=== PATIENT | female | born 1980 | race Caucasian/White ===

== ENCOUNTER 2018-04-16 18:10 | Emergency (ER) | payer OTHER ==
[2018-04-16 18:17] VITALS: BP 110/78; PULSE 96; TEMP 98.8; BMI 30.4
--- NOTE | 2018-04-16 18:57 | PDOC ---
History of Present Illness - General Chief Complaint: Headache Stated Complaint: HEADACHE Time Seen by Provider: 04/16/18 18:34 History Source: Patient Exam Limitations: No Limitations - History of Present Illness Initial Comments: 04/16/18 19:00 HISTORY OF PRESENT ILLNESS: 37-year-old woman presents emergency department for reevaluation of headaches she's had for the past 2-3 weeks. Patient states she was evaluated at [facility] where she was given a prescription for Toradol and Imitrex which she has taken with minimal relief of symptoms. She reports she had a negative CAT scan performed yesterday. She denies any fevers, chills, blurry vision, neck pain, sore throats, vomiting. No recent travel or sick contacts. PAST MEDICAL HISTORY: Denies past medical history SURGICAL HISTORY: Denies ALLERGIES: Naproxen REVIEW OF SYSTEMS General/Constitutional: Denies fever or chills. Denies weakness, weight change. HEENT: Denies change in vision. Denies ear pain or discharge. Denies sore throat. Cardiovascular: Denies chest pain or shortness of breath. Respiratory: Denies cough, wheezing, or hemoptysis. Gastrointestinal: Denies nausea, vomiting, diarrhea or constipation. Denies rectal bleeding. Genitourinary: Denies dysuria, frequency, or change in urination. Musculoskeletal: Denies joint or muscle swelling or pain. Denies neck or back pain. Skin and breasts: Denies rash or easy bruising. Neurologic: see HPI Psychiatric: Denies depression or anxiety. Endocrine: Denies increased thirst. Denies abnormal weight change. Hematologic/Lymphatic: Denies anemia, easy bleeding, or history of blood clots. Allergic/Immunologic: Denies hives or skin allergy. Denies latex allergy. PHYSICAL EXAM General Appearance: Well-appearing, appropriately dressed. No apparent distress , no intoxication. HEENT: EOMI, PERRLA, normal ENT inspection, normal voice, TMs normal, pharynx normal. No conjunctival pallor. No photophobia, scleral icterus. Neck: Supple. Trachea midline. No tenderness, rigidity, carotid bruit, stridor , lymphadenopathy, or thyromegaly. Respiratory/Chest: Lungs CTAB. No shortness of breath, chest tenderness, respiratory distress, accessory muscle use. No crackles, rales, rhonchi, stridor , wheezing, dullness Cardiovascular: RRR. S1, S2. No JVD, murmur, bradycardia, tachycardia. Vascular Pulses: Dorsalis-Pedis (R): 2+, Dorsalis-Pedis (L): 2+ Gastrointestinal/Abdominal: Normal bowel sounds. Abdomen soft, non-distended. No tenderness or rebound tenderness. No organomegaly, pulsatile mass, guarding, hernia, hepatomegaly, splenomegaly. Lymphatic: No adenopathy, tenderness. Musculoskeletal/Extremities: Normal inspection. FROM of all extremities, normal capillary refill. Pelvis Stable. No CVA tenderness. No tenderness to extremities, pedal edema, swelling, erythema or deformity. Integumentary: Appropriate color, dry, warm. No cyanosis, erythema, jaundice or rash Neurologic: cd mixer II-XII intact. Fully oriented, alert. Appropriate mood/affect. Motor strength 5/5. No appreciable EOM palsy, facial droop or sensory deficit. Normal finger-nose testing. Able to perform rapid alternating movements without difficulty. 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 strength 5/5 bilaterally Past History - Past Medical History Allergies/Adverse Reactions: Allergies Allergy/AdvReac Type Severity Reaction Status Date / Time naproxen [From Aleve] AdvReac Verified 04/16/18 18:17 Home Medications: Ambulatory Orders Duloxetine HCl [Cymbalta -] 30 mg PO DAILY 04/16/18 COPD: No Other medical history: migraines - Suicide/Smoking/Psychosocial Hx Smoking History: Current every day smoker Number of Cigarettes Smoked Daily: 10 Information on smoking cessation initiated: No *Physical Exam - Vital Signs Last Vital Signs Temp Pulse Resp BP Pulse Ox 98.8 F 96 H 18 110/78 100 04/16/18 18:13 04/16/18 18:13 04/16/18 18:13 04/16/18 18:13 04/16/18 18:13 Moderate Sedation - Procedure Monitoring Vital Signs: Procedure Monitoring Vital Signs Temperature 98.8 F 04/16/18 18:13 Pulse Rate 96 H 04/16/18 18:13 Respiratory Rate 18 04/16/18 18:13 Blood Pressure 110/78 04/16/18 18:13 O2 Sat by Pulse Oximetry (%) 100 04/16/18 18:13 Medical Decision Making - Medical Decision Making 04/16/18 19:02 A/P: 37-year-old woman with headache for 3 weeks Normal neurologic exam Differential diagnosis includes migraines, headaches- hormaonal, tension type, cluster less likely ICH given negative CAT scan performed yesterday [facility]. Reglan 10 mg IV Benadryl 25 mg IV Tylenol 1 g IV 1 L of normal saline Reassess 04/16/18 20:12 Patient currently reports her pain is 0/10. Headache diary was discussed with the patient. Patient is alert he been given a prescription for Imitrex and patient was instructed that of her headaches return should take the Imitrex immediately when the pain starts. Patient is verbalized understanding of discharge instructions reports she will follow up with her primary doctor as previously scheduled on Wednesday. *DC/Admit/Observation/Transfer Diagnosis at time of Disposition: Migraine Qualifiers: Migraine type: menstrual Status migrainosus presence: without status migrainosus Intractability: not intractable Qualified Code(s): G43.829 - Menstrual migraine, not intractable, without status migrainosus - Discharge Dispostion Disposition: HOME Condition at time of disposition: Stable Decision to Admit order: No - Referrals - Patient Instructions Additional Instructions: Take Tylenol or Motrin as needed for headaches. Keep a diary of all food to eat and activities performed prior to headaches starting. Make an appointment with her primary doctor for reevaluation within the next week. Return to emergency department for worsening headache, blurry vision, dizziness , nausea, vomiting or any other concerns. Thank you very much for for choosing us to provide emergent health care needs. - Post Discharge Activity
[2018-04-16] MEDS ORDERED: ACETAMINOPHEN 1000 MG/100 ML VIAL (NON FORMULARY) IVPB ONE (18:58)
[2018-04-16] MEDS ORDERED: METOCLOPRAMIDE HCL INJECTION 10 MG/2 ML VIAL IVPUSH ONE (18:58)
[2018-04-16] MEDS ORDERED: SODIUM CHLORIDE 1,000 ML IV STA (18:59)
[2018-04-16] MEDS ORDERED: ACETAMINOPHEN INJECTION 100 ML IVPB ONE (19:19)
[2018-04-16] MEDS ORDERED: METOCLOPRAMIDE HCL INJECTION 10 MG/2 ML VIAL ONE (19:39)
== END 2018-04-16 20:13 | disposition home or self-care (01) ==
LOC: JERFT 18:10
PROC: 3E0337Z Introduction of Electrolytic and Water Balance Substance into Peripheral Vein, Percutaneous Approach (ICD-10-PCS; principal; 2018-04-16)
PROC: 3E033GC Introduction of Other Therapeutic Substance into Peripheral Vein, Percutaneous Approach (ICD-10-PCS; 2018-04-16)
PROC: 3E033GC Introduction of Other Therapeutic Substance into Peripheral Vein, Percutaneous Approach (ICD-10-PCS; 2018-04-16)
PROC: 3E033NZ Introduction of Analgesics, Hypnotics, Sedatives into Peripheral Vein, Percutaneous Approach (ICD-10-PCS; 2018-04-16)
DX: G43.829 Menstrual migraine, not intractable, without status migrainosus (principal)
CPT/HCPCS: 96361; 96374; 96375; 99281-25; J0131; J7030

== ENCOUNTER 2022-11-20 11:11 | Observation (INO) | payer OTHER ==
[2022-11-20 11:25] VITALS: BMI 28.3
[2022-11-20 13:05] LABS: BASO % 1.1 % (0-2.0); EOS % 2.9 % (0-4.5); HEMATOCRIT 26.6 % (32.4-45.2); LYMPH % 46.9 % (8-40); MCHC 30.3 g/dl (32.0-36.0); MEAN CELL VOLUME 60.8 fl (80-96); MEAN PLT VOLUME 8.6 fl (7.5-11.1); MONO % 7.3 % (3.8-10.2); NEUT % 41.8 % (42.8-82.8); PLATELET COUNT 456 10^3/uL (134-434); RBC 4.37 M/mm3 (3.60-5.2); RDW 20.5 % (11.6-15.6); WHITE BLOOD COUNT 6.4 K/mm3 (4.0-10.0)
[2022-11-20 13:10] LABS: MCH 18.4 pg (25.7-33.7)
[2022-11-20 13:12] LABS: INR 1.04 (0.83-1.09); PROTHROMBIN TIME (PATIENT) 12.1 SEC (9.7-13.0)
[2022-11-20 13:15] LABS: ACTIVATED PTT 28.5 SECONDS (25.2-36.5)
[2022-11-20 13:26] LABS: CALCIUM 8.8 mg/dL (8.5-10.1)
[2022-11-20 13:27] LABS: ALBUMIN 3.6 g/dl (3.4-5.0); BLOOD UREA NITROGEN 5.9 mg/dL (7-18)
[2022-11-20 13:30] LABS: CREATININE 0.8 mg/dL (0.55-1.3)
[2022-11-20 13:31] LABS: BILIRUBIN,TOTAL 0.3 mg/dL (0.2-1)
[2022-11-20 14:10] LABS: ANISOCYTOSIS 2+; MACROCYTOSIS 0; OVALOCYTE 1+
[2022-11-20] MEDS ORDERED: ENOXAPARIN NA (PORCINE) 80 MG/0.8 ML DISP.SYRIN SQ ONE (18:13)
[2022-11-20] MEDS: ACETAMINOPHEN 1000 MG/100 ML BAG IVPB PRN (20:40)
[2022-11-20] MEDS: clonazePAM 0.5 MG TABLET PO PRN (21:42)
[2022-11-20] MEDS: DULoxetine HCL 30 MG CAPSULE.DR PO SCH (21:42)
[2022-11-20] MEDS ORDERED: ILOPERIDONE 6 MG PO SCH (22:00)
[2022-11-21 07:49] LABS: BASO % 0.9 % (0-2.0); EOS % 3.8 % (0-4.5); HEMATOCRIT 25.3 % (32.4-45.2); HEMOGLOBIN 7.6 GM/dL (10.7-15.3); LYMPH % 52.5 % (8-40); MEAN CELL VOLUME 60.7 fl (80-96); MEAN PLT VOLUME 8.4 fl (7.5-11.1); MONO % 5.9 % (3.8-10.2); NEUT % 36.9 % (42.8-82.8); PLATELET COUNT 405 10^3/uL (134-434); RBC 4.17 M/mm3 (3.60-5.2); RDW 19.9 % (11.6-15.6); WHITE BLOOD COUNT 5.8 K/mm3 (4.0-10.0)
[2022-11-21 07:56] LABS: MCH 18.2 pg (25.7-33.7)
[2022-11-21 08:10] LABS: POTASSIUM 4.6 mmol/L (3.5-5.1)
[2022-11-21 08:13] LABS: CALCIUM 8.6 mg/dL (8.5-10.1)
[2022-11-21 08:14] LABS: ALBUMIN 3.3 g/dl (3.4-5.0); BLOOD UREA NITROGEN 6.4 mg/dL (7-18); MAGNESIUM 2.3 mg/dL (1.8-2.4)
[2022-11-21 08:17] LABS: CREATININE 0.7 mg/dL (0.55-1.3); PHOSPHOROUS 4.2 mg/dL (2.5-4.9)
[2022-11-21 08:18] LABS: TOT PROT 6.6 g/dl (6.4-8.2)
[2022-11-21 08:19] LABS: BILIRUBIN,TOTAL 0.1 mg/dL (0.2-1)
[2022-11-21] MEDS: DULoxetine HCL 30 MG CAPSULE.DR PO SCH ×2 (09:20→22:13)
[2022-11-21] MEDS: NICOTINE 14 MG/24 HOURS TOPICAL PATCH TD SCH (09:20)
[2022-11-21] MEDS: ENOXAPARIN NA (PORCINE) 80 MG/0.8 ML DISP.SYRIN SQ SCH ×2 (09:20→22:12)
[2022-11-21] MEDS: clonazePAM 0.5 MG TABLET PO PRN (09:20)
[2022-11-21] MEDS: ACETAMINOPHEN 1000 MG/100 ML BAG IVPB PRN ×2 (09:21→16:28)
[2022-11-21] MEDS ORDERED: APIXABAN 5 MG TABLET PO SCH (10:00)
[2022-11-21] MEDS ORDERED: IRON SUCROSE INJECTION 200 MG in SODIUM CHLORIDE 90 ML IVPB ONE (13:15)
[2022-11-21 15:08] VITALS: RESP 18
[2022-11-21] MEDS ORDERED: KETOROLAC TROMETHAMINE 15 MG/ML VIAL IVPUSH ONE (19:01)
[2022-11-21] MEDS: ILOPERIDONE 6 MG PO SCH ×2 (22:13→22:17)
[2022-11-22] MEDS: DULoxetine HCL 30 MG CAPSULE.DR PO SCH ×2 (09:33→22:20)
[2022-11-22] MEDS: ILOPERIDONE 6 MG PO SCH ×2 (09:34→22:21)
[2022-11-22] MEDS: NICOTINE 14 MG/24 HOURS TOPICAL PATCH TD SCH (09:35)
[2022-11-22] MEDS: ENOXAPARIN NA (PORCINE) 80 MG/0.8 ML DISP.SYRIN SQ SCH ×2 (09:35→22:24)
[2022-11-22 10:53] LABS: BASO % 1.1 % (0-2.0); EOS % 2.4 % (0-4.5); HEMATOCRIT 23.8 % (32.4-45.2); HEMOGLOBIN 7.4 GM/dL (10.7-15.3); LYMPH % 49.6 % (8-40); MCH 18.5 pg (25.7-33.7); MCHC 30.9 g/dl (32.0-36.0); MEAN CELL VOLUME 59.8 fl (80-96); MEAN PLT VOLUME 8.3 fl (7.5-11.1); MONO % 6.1 % (3.8-10.2); NEUT % 40.8 % (42.8-82.8); PLATELET COUNT 399 10^3/uL (134-434); RBC 3.98 M/mm3 (3.60-5.2); WHITE BLOOD COUNT 4.9 K/mm3 (4.0-10.0)
[2022-11-22] MEDS ORDERED: SODIUM CHLORIDE 0.9% 500 ML INFUS.BAG IV ONE (11:33)
[2022-11-22] MEDS: CYCLOBENZAPRINE HCL 5 MG TABLET PO SCH ×3 (11:45→22:20)
[2022-11-22] MEDS: ACETAMINOPHEN 1000 MG/100 ML BAG IVPB PRN ×2 (13:18→21:00)
[2022-11-22 13:52] LABS: ALBUMIN 3.2 g/dl (3.4-5.0); BILIRUBIN,TOTAL 0.2 mg/dL (0.2-1); BLOOD UREA NITROGEN 8.1 mg/dL (7-18); CALCIUM 8.6 mg/dL (8.5-10.1); CREATININE 0.7 mg/dL (0.55-1.3); POTASSIUM 4.3 mmol/L (3.5-5.1); TOT PROT 6.2 g/dl (6.4-8.2)
[2022-11-23] MEDS: CYCLOBENZAPRINE HCL 5 MG TABLET PO SCH (05:54)
[2022-11-23 06:09] VITALS: TEMP 98.4
[2022-11-23 06:16] VITALS: BP 124/81; PULSE 77
[2022-11-23] MEDS: NICOTINE 14 MG/24 HOURS TOPICAL PATCH TD SCH (10:18)
[2022-11-23] MEDS: DULoxetine HCL 30 MG CAPSULE.DR PO SCH (10:18)
[2022-11-23] MEDS: ENOXAPARIN NA (PORCINE) 80 MG/0.8 ML DISP.SYRIN SQ SCH (10:19)
[2022-11-23] MEDS: ILOPERIDONE 6 MG PO SCH (10:20)
[2022-11-23 11:33] LABS: BASO % 1.1 % (0-2.0); EOS % 3.5 % (0-4.5); HEMATOCRIT 26.6 % (32.4-45.2); HEMOGLOBIN 8.2 GM/dL (10.7-15.3); LYMPH % 43.2 % (8-40); MCHC 30.9 g/dl (32.0-36.0); MEAN CELL VOLUME 60.1 fl (80-96); MEAN PLT VOLUME 8.7 fl (7.5-11.1); MONO % 6.5 % (3.8-10.2); NEUT % 45.7 % (42.8-82.8); PLATELET COUNT 427 10^3/uL (134-434); RBC 4.42 M/mm3 (3.60-5.2); RDW 20.3 % (11.6-15.6); WHITE BLOOD COUNT 5.8 K/mm3 (4.0-10.0)
[2022-11-23 11:34] LABS: MCH 18.6 pg (25.7-33.7)
[2022-11-23 11:55] LABS: POTASSIUM 4.7 mmol/L (3.5-5.1)
[2022-11-23 11:58] LABS: ALBUMIN 3.5 g/dl (3.4-5.0); BLOOD UREA NITROGEN 8.5 mg/dL (7-18); CALCIUM 8.9 mg/dL (8.5-10.1)
[2022-11-23 12:02] LABS: CREATININE 0.7 mg/dL (0.55-1.3)
[2022-11-23 12:03] LABS: BILIRUBIN,TOTAL 0.3 mg/dL (0.2-1)
[2022-11-23] MEDS ORDERED: IRON SUCROSE INJECTION 200 MG in SODIUM CHLORIDE 90 ML IVPB ONE (13:00)
== END 2022-11-23 13:39 | disposition left against medical advice (07) ==
LOC: JER 11:11 → JERBED 17:01 → J5S 18:38
PROVIDERS: ADMIT Internal Medicine; ATTEND Internal Medicine
PROC: 3E033NZ Introduction of Analgesics, Hypnotics, Sedatives into Peripheral Vein, Percutaneous Approach (ICD-10-PCS; principal; 2022-11-20)
PROC: 3E023GC Introduction of Other Therapeutic Substance into Muscle, Percutaneous Approach (ICD-10-PCS; 2022-11-20)
PROC: 3E033GC Introduction of Other Therapeutic Substance into Peripheral Vein, Percutaneous Approach (ICD-10-PCS; 2022-11-20)
PROC: 3E0337Z Introduction of Electrolytic and Water Balance Substance into Peripheral Vein, Percutaneous Approach (ICD-10-PCS; 2022-11-20)
DX: M79.661 Pain in right lower leg (principal); D50.9 Iron deficiency anemia, unspecified; F41.8 Other specified anxiety disorders; F90.9 Attention-deficit hyperactivity disorder, unspecified type; Z29.8 Encounter for other specified prophylactic measures; E66.8 Other obesity; Z68.33 Body mass index [BMI] 33.0-33.9, adult; F17.210 Nicotine dependence, cigarettes, uncomplicated; Z88.8 Allergy status to other drugs, medicaments and biological substances
CPT/HCPCS: 0241U-QW; 36415; 71275-TC; 75635-TC; 80053; 82728; 83540; 83550; 83605; 83735; 84100; 85025; 85045; 85379; 85610; 85730; 86038; 86850; 86900; 86901; 93005; 93010; 93306-TC; 93971-RT; 96365; 96372; 96375; 96376; 99285-25; G0378; J1756; Q9967

== ENCOUNTER 2022-11-25 16:22 | Emergency (ER) | payer OTHER ==
[2022-11-25 16:49] VITALS: BP 92/59; PULSE 98; RESP 20; TEMP 98.7; BMI 28.3
[2022-11-25 18:20] LABS: HEMATOCRIT 26.8 % (32.4-45.2); HEMOGLOBIN 8.3 GM/dL (10.7-15.3); MCHC 31.1 g/dl (32.0-36.0); MEAN CELL VOLUME 60.5 fl (80-96); MEAN PLT VOLUME 8.3 fl (7.5-11.1); PLATELET COUNT 438 10^3/uL (134-434); RBC 4.43 M/mm3 (3.60-5.2); RDW 20.8 % (11.6-15.6); WHITE BLOOD COUNT 8.1 K/mm3 (4.0-10.0)
[2022-11-25 18:23] LABS: EPI CELLS 1 /uL (0-25.1); HYALINE CASTS 0 /uL (0-3.1); MCH 18.8 pg (25.7-33.7); PH,URINE 6.5 (5.0-8.0); URINE APPEARANCE CLEAR; URINE BACTERIA >9,000 /uL (0-1359); URINE BILIRUBIN NEGATIVE (NEGATIVE); URINE COLOR YELLOW; URINE GLUCOSE (UA) NEGATIVE (NEGATIVE); URINE KETONE NEGATIVE (NEGATIVE); URINE LEUK ESTERASE NEGATIVE (NEGATIVE); URINE NITRITE NEGATIVE (NEGATIVE); URINE PROTEIN NEGATIVE (NEGATIVE); URINE RBC 8 /uL (0-23.9); URINE UROBILINOGEN 0.2 mg/dL (0.2-1.0); URINE WBC 5 /uL (0-25.8)
[2022-11-25 18:34] LABS: INR 1.36 (0.83-1.09); PROTHROMBIN TIME (PATIENT) 15.7 SEC (9.7-13.0)
[2022-11-25 18:37] LABS: ACTIVATED PTT 32.7 SECONDS (25.2-36.5)
[2022-11-25 19:08] LABS: POTASSIUM 4.2 mmol/L (3.5-5.1)
[2022-11-25 19:11] LABS: CALCIUM 9.5 mg/dL (8.5-10.1)
[2022-11-25 19:12] LABS: ALBUMIN 4.1 g/dl (3.4-5.0); BLOOD UREA NITROGEN 11.5 mg/dL (7-18)
[2022-11-25 19:16] LABS: BILIRUBIN,TOTAL 0.5 mg/dL (0.2-1); CREATININE 0.9 mg/dL (0.55-1.3); TOT PROT 7.8 g/dl (6.4-8.2)
== END 2022-11-25 23:47 | disposition home or self-care (01) ==
LOC: JER 16:22
DX: R06.02 Shortness of breath (principal); R07.89 Other chest pain; R42 Dizziness and giddiness; R51.9 Headache, unspecified
CPT/HCPCS: 36415; 70450-TC; 71275-TC; 80053; 81003; 84484; 84703; 85027; 85610; 85730; 93005; 93010; 99285-25

== ENCOUNTER 2023-05-26 13:43 | Emergency (ER) | payer OTHER ==
[2023-05-26 13:48] VITALS: RESP 18; BMI 29.2
[2023-05-26 14:38] LABS: HCG,QUALITATIVE URINE Negative
[2023-05-26 14:39] LABS: EPI CELLS 16 /uL (0-25.1); HYALINE CASTS 0 /uL (0-3.1); URINE APPEARANCE CLOUDY; URINE BACTERIA 19 /uL (0-1359); URINE BILIRUBIN NEGATIVE (NEGATIVE); URINE COLOR RED; URINE GLUCOSE (UA) NEGATIVE (NEGATIVE); URINE KETONE 1+ (NEGATIVE); URINE LEUK ESTERASE 1+ (NEGATIVE); URINE NITRITE NEGATIVE (NEGATIVE); URINE PROTEIN 1+ (NEGATIVE); URINE RBC 18601 /uL (0-23.9); URINE UROBILINOGEN 0.2 mg/dL (0.2-1.0); URINE WBC 68 /uL (0-25.8)
[2023-05-26 15:41] LABS: HEMATOCRIT 30.6 % (32.4-45.2); HEMOGLOBIN 9.7 GM/dL (10.7-15.3); MCH 22.6 pg (25.7-33.7); MCHC 31.6 g/dl (32.0-36.0); MEAN CELL VOLUME 71.4 fl (80-96); MEAN PLT VOLUME 9.5 fl (7.5-11.1); PLATELET COUNT 300 10^3/uL (134-434); RBC 4.29 M/mm3 (3.60-5.2); RDW 18.3 % (11.6-15.6)
[2023-05-26 15:43] LABS: WHITE BLOOD COUNT 7.3 K/mm3 (4.0-10.0)
[2023-05-26] MEDS ORDERED: MAG HYDROX/AL HYDROX/SIMETH 30 ML UNIT-DOSE CUP ONE (15:59)
[2023-05-26] MEDS ORDERED: FAMOTIDINE 20 MG/50 ML IVPB 20 MG/50 ML MG IVPB ONE (15:59)
[2023-05-26 16:03] LABS: POTASSIUM 5.2 mmol/L (3.5-5.1)
[2023-05-26] MEDS: FAMOTIDINE 20 MG/50 ML IVPB 20 MG/50 ML MG IVPB ONE (16:03)
[2023-05-26] MEDS: MAG HYDROX/AL HYDROX/SIMETH 30 ML UNIT-DOSE CUP PO ONE (16:03)
[2023-05-26 16:06] LABS: BLOOD UREA NITROGEN 11.9 mg/dL (7-18); CALCIUM 9.4 mg/dL (8.5-10.1)
[2023-05-26 16:09] LABS: CREATININE 0.7 mg/dL (0.55-1.3)
[2023-05-26 16:10] LABS: BILIRUBIN,TOTAL 0.3 mg/dL (0.2-1); TOT PROT 7.6 g/dl (6.4-8.2)
[2023-05-26 16:44] VITALS: BP 97/65; PULSE 66; TEMP 98.5
[2023-05-26 17:01] LABS: PLATELET ESTIMATE DECREASED
[2023-05-26 18:14] LABS: ANISOCYTOSIS 3+; MACROCYTOSIS 0; OVALOCYTE 1+
== END 2023-05-26 17:25 | disposition home or self-care (01) ==
LOC: JER 13:43
PROC: 3E033GC Introduction of Other Therapeutic Substance into Peripheral Vein, Percutaneous Approach (ICD-10-PCS; principal; 2023-05-26)
DX: R10.32 Left lower quadrant pain (principal); R10.13 Epigastric pain; M54.50 Low back pain, unspecified; R68.83 Chills (without fever); N30.00 Acute cystitis without hematuria; K29.50 Unspecified chronic gastritis without bleeding
CPT/HCPCS: 36415; 76705-TC; 80053; 81003; 83690; 84703; 85025; 87086; 99284-25

== ENCOUNTER 2023-09-20 07:48 | Emergency (ER) | payer OTHER ==
[2023-09-20 07:54] VITALS: BP 109/67; PULSE 103; RESP 18; TEMP 98.6; BMI 29.2
[2023-09-20] MEDS ORDERED: ACETAMINOPHEN 325 MG TABLET (FP) ONE (08:27)
[2023-09-20] MEDS: ACETAMINOPHEN 325 MG TABLET (FP) PO ONE (08:29)
[2023-09-20] MEDS ORDERED: METOCLOPRAMIDE HCL INJECTION 10 MG/2 ML VIAL ONE (08:37)
[2023-09-20] MEDS: METOCLOPRAMIDE HCL INJECTION 10 MG/2 ML VIAL IVPUSH ONE (09:30)
[2023-09-20 09:41] LABS: BASO % 1.1 % (0-2.0); EOS % 1.1 % (0-4.5); HEMATOCRIT 34.8 % (32.4-45.2); HEMOGLOBIN 11.4 GM/dL (10.7-15.3); LYMPH % 39.8 % (8-40); MCH 23.2 pg (25.7-33.7); MCHC 32.7 g/dl (32.0-36.0); MEAN PLT VOLUME 7.9 fl (7.5-11.1); MONO % 5.7 % (3.8-10.2); NEUT % 52.3 % (42.8-82.8); PLATELET COUNT 344 10^3/uL (134-434); RBC 4.91 M/mm3 (3.60-5.2); RDW 24.5 % (11.6-15.6); WHITE BLOOD COUNT 5.4 K/mm3 (4.0-10.0)
[2023-09-20 09:58] LABS: POTASSIUM 4.2 mmol/L (3.5-5.1)
[2023-09-20 10:00] LABS: CALCIUM 9.6 mg/dL (8.5-10.1)
[2023-09-20 10:02] LABS: ALBUMIN 4.2 g/dl (3.4-5.0); BLOOD UREA NITROGEN 10.3 mg/dL (7-18)
[2023-09-20 10:04] LABS: CREATININE 0.9 mg/dL (0.55-1.3)
[2023-09-20 10:05] LABS: TOT PROT 7.9 g/dl (6.4-8.2)
[2023-09-20 10:06] LABS: BILIRUBIN,TOTAL 0.3 mg/dL (0.2-1)
[2023-09-20 10:33] LABS: ANISOCYTOSIS 2+; MACROCYTOSIS 0; OVALOCYTE 0
== END 2023-09-20 12:23 | disposition home or self-care (01) ==
LOC: JERFT 07:48
PROC: 3E033GC Introduction of Other Therapeutic Substance into Peripheral Vein, Percutaneous Approach (ICD-10-PCS; principal; 2023-09-20)
DX: R51.9 Headache, unspecified (principal)
CPT/HCPCS: 36415; 70450-TC; 70496-TC; 70498-TC; 80053; 84703; 85025; 99284-25

== ENCOUNTER 2023-09-21 19:30 | Emergency (ER) | payer OTHER ==
[2023-09-21 19:38] VITALS: RESP 20; TEMP 98.6; BMI 30.1
[2023-09-21 20:04] VITALS: BP 101/61; PULSE 77
[2023-09-21] MEDS: LACTATED RINGERS SOLUTION 1000 ML INFUS.BAG IV ONE (21:00)
[2023-09-21] MEDS ORDERED: ONDANSETRON 4 MG/2 ML VIAL ONE (21:18)
[2023-09-21] MEDS: ONDANSETRON 4 MG/2 ML VIAL IVPUSH ONE (21:29)
[2023-09-21] MEDS ORDERED: FAMOTIDINE 20 MG/50 ML IVPB 20 MG/50 ML MG IVPB ONE (21:30)
[2023-09-21] MEDS: FAMOTIDINE 20 MG/50 ML IVPB 20 MG/50 ML MG IVPB ONE (21:47)
== END 2023-09-21 22:13 | disposition home or self-care (01) ==
LOC: JER 19:30
PROC: 3E033GC Introduction of Other Therapeutic Substance into Peripheral Vein, Percutaneous Approach (ICD-10-PCS; principal; 2023-09-21)
PROC: 3E033GC Introduction of Other Therapeutic Substance into Peripheral Vein, Percutaneous Approach (ICD-10-PCS; 2023-09-21)
DX: R23.2 Flushing (principal); R51.9 Headache, unspecified; R26.81 Unsteadiness on feet
CPT/HCPCS: 36415; 84439; 84443; 99284-25

== ENCOUNTER 2023-09-22 16:45 | Emergency (ER) | payer OTHER ==
[2023-09-22 16:56] VITALS: TEMP 99; BMI 30.1
[2023-09-22] MEDS ORDERED: ACETAMINOPHEN 325 MG TABLET (FP) ONE (18:38)
[2023-09-22] MEDS: ACETAMINOPHEN 500 MG TABLET (FP) PO ONE (18:39)
[2023-09-22] MEDS ORDERED: LIDOCAINE 4% PATCH TP ONE (18:39)
[2023-09-22] MEDS: METHOCARBAMOL 500 MG TABLET PO ONE (18:39)
[2023-09-22] MEDS: LIDOCAINE 4% PATCH TP ONE (18:39)
[2023-09-22] MEDS ORDERED: METHOCARBAMOL 500 MG TABLET ONE (18:39)
[2023-09-22 18:46] VITALS: PULSE 80; RESP 20
[2023-09-22 19:02] VITALS: BP 130/78
[2023-09-22] MEDS ORDERED: LIDOCAINE PATCH REMOVAL MC SCH (22:00)
== END 2023-09-22 19:01 | disposition home or self-care (01) ==
LOC: JER 16:45
DX: R20.2 Paresthesia of skin (principal); M54.2 Cervicalgia
CPT/HCPCS: 99283-25

== ENCOUNTER 2023-10-02 16:06 | Emergency (ER) | payer OTHER ==
[2023-10-02 16:14] VITALS: BP 109/74; PULSE 98; RESP 20; TEMP 98.8; BMI 29.2
[2023-10-02] MEDS ORDERED: clonazePAM 0.5 MG TABLET ONE (17:04)
[2023-10-02] MEDS ORDERED: ACETAMINOPHEN 500 MG TABLET (FP) ONE (17:05)
[2023-10-02] MEDS: clonazePAM 0.5 MG TABLET PO ONE (17:08)
[2023-10-02] MEDS: ACETAMINOPHEN 500 MG TABLET (FP) PO ONE (17:08)
[2023-10-02] MEDS ORDERED: METHOCARBAMOL 500 MG TABLET PO ONE (17:32)
== END 2023-10-02 17:09 | disposition home or self-care (01) ==
LOC: JERFT 16:06
DX: M54.6 Pain in thoracic spine (principal); F41.9 Anxiety disorder, unspecified
CPT/HCPCS: 99283-25

== ENCOUNTER 2023-10-06 09:51 | Emergency (ER) | payer OTHER ==
[2023-10-06 10:12] VITALS: BP 107/75; PULSE 97; RESP 18; TEMP 98.2; BMI 28.3
== END 2023-10-06 12:29 | disposition home or self-care (01) ==
LOC: JER 09:51 → JERFT 09:51
DX: H60.92 Unspecified otitis externa, left ear (principal); H61.22 Impacted cerumen, left ear
CPT/HCPCS: 99283-25

== ENCOUNTER 2023-10-06 15:42 | Emergency (ER) | payer OTHER ==
[2023-10-06 16:09] VITALS: BP 129/79; PULSE 107; RESP 18; TEMP 98.6; BMI 28.3
[2023-10-06] MEDS ORDERED: LORazepam 0.5 MG TABLET ONE (17:09)
[2023-10-06] MEDS: LORazepam 0.5 MG TABLET PO ONE (17:13)
[2023-10-06 17:42] LABS: HCG,QUALITATIVE URINE Negative
[2023-10-06 17:43] LABS: EPI CELLS >36 /uL (0-25.1); HYALINE CASTS 2 /uL (0-3.1); URINE APPEARANCE CLEAR; URINE BACTERIA 206 /uL (0-1359); URINE BILIRUBIN NEGATIVE (NEGATIVE); URINE COLOR YELLOW; URINE GLUCOSE (UA) NEGATIVE (NEGATIVE); URINE KETONE TRACE (NEGATIVE); URINE LEUK ESTERASE TRACE (NEGATIVE); URINE NITRITE NEGATIVE (NEGATIVE); URINE PROTEIN NEGATIVE (NEGATIVE); URINE RBC 39 /uL (0-23.9); URINE WBC 26 /uL (0-25.8)
[2023-10-06 17:44] LABS: URINE AMPHETAMINES NEGATIVE (NEGATIVE); URINE BARBITURATES NEGATIVE (NEGATIVE)
[2023-10-06 17:45] LABS: COCAINE, UR NEGATIVE (NEGATIVE); METHADONE, UR NEGATIVE (NEGATIVE); OPIATES, URI NEGATIVE (NEGATIVE); PHENCYCLIDINE,URINE NEGATIVE (NEGATIVE)
[2023-10-06 17:48] LABS: URINE BENZODIAZEPINES POSITIVE (NEGATIVE)
[2023-10-06] MEDS ORDERED: KETOROLAC TROMETHAMINE 15 MG/ML VIAL ONE (18:42)
[2023-10-06] MEDS: KETOROLAC TROMETHAMINE 15 MG/ML VIAL IVPUSH ONE (18:56)
[2023-10-06] MEDS: SODIUM CHLORIDE 0.9% 500 ML INFUS.BAG IV ONE (18:56)
[2023-10-06 19:02] LABS: BASO % 0.6 % (0-2.0); EOS % 2.4 % (0-4.5); HEMATOCRIT 35.1 % (32.4-45.2); HEMOGLOBIN 11.2 GM/dL (10.7-15.3); MCHC 31.8 g/dl (32.0-36.0); MEAN CELL VOLUME 72.3 fl (80-96); MEAN PLT VOLUME 8.1 fl (7.5-11.1); MONO % 7.6 % (3.8-10.2); NEUT % 48.4 % (42.8-82.8); PLATELET COUNT 280 10^3/uL (134-434); RBC 4.86 M/mm3 (3.60-5.2); RDW 22.9 % (11.6-15.6); WHITE BLOOD COUNT 8.3 K/mm3 (4.0-10.0)
[2023-10-06] MEDS: ACETAMINOPHEN 1000 MG/100 ML BAG IVPB ONE (19:07)
[2023-10-06] MEDS: METOCLOPRAMIDE HCL INJECTION 10 MG/2 ML VIAL IVPUSH ONE (19:08)
[2023-10-06 19:27] LABS: POTASSIUM 4.2 mmol/L (3.5-5.1)
[2023-10-06 19:29] LABS: ALBUMIN 3.9 g/dl (3.4-5.0); BLOOD UREA NITROGEN 10.9 mg/dL (7-18); CALCIUM 9.4 mg/dL (8.5-10.1)
[2023-10-06 19:32] LABS: CREATININE 0.6 mg/dL (0.55-1.3)
[2023-10-06 19:34] LABS: BILIRUBIN,TOTAL 0.3 mg/dL (0.2-1); TOT PROT 7.1 g/dl (6.4-8.2)
[2023-10-06 20:41] LABS: ANISOCYTOSIS 3+; MACROCYTOSIS 0; OVALOCYTE 1+
== END 2023-10-06 19:56 | disposition home or self-care (01) ==
LOC: JER 15:42
PROC: 3E0333Z Introduction of Anti-inflammatory into Peripheral Vein, Percutaneous Approach (ICD-10-PCS; principal; 2023-10-06)
DX: G43.909 Migraine, unspecified, not intractable, without status migrainosus (principal); F13.90 Sedative, hypnotic, or anxiolytic use, unspecified, uncomplicated
CPT/HCPCS: 36415; 80053; 80307; 81003; 84703; 85025; 87086; 99284-25

== ENCOUNTER 2023-10-07 10:09 | Emergency (ER) | payer OTHER ==
[2023-10-07 10:16] VITALS: BP 117/65; PULSE 94; RESP 19; TEMP 98.4; BMI 28.3
[2023-10-07] MEDS ORDERED: MECLIZINE HCL 25 MG TABLET (FP) ONE (11:06)
[2023-10-07] MEDS ORDERED: ACETAMINOPHEN INJECTION 100 ML IVPB ONE (11:07)
[2023-10-07] MEDS: ACETAMINOPHEN 1000 MG/100 ML BAG IVPB ONE (11:20)
[2023-10-07] MEDS: SODIUM CHLORIDE 0.9% 500 ML INFUS.BAG IV ONE (11:20)
[2023-10-07] MEDS: MECLIZINE HCL 25 MG TABLET (FP) PO ONE (11:20)
[2023-10-07] MEDS: LORazepam 0.5 MG TABLET PO ONE (11:45)
[2023-10-07] MEDS ORDERED: LORazepam 0.5 MG TABLET ONE (11:47)
== END 2023-10-07 12:05 | disposition home or self-care (01) ==
LOC: JER 10:09
PROC: 3E033NZ Introduction of Analgesics, Hypnotics, Sedatives into Peripheral Vein, Percutaneous Approach (ICD-10-PCS; principal; 2023-10-07)
DX: R51.9 Headache, unspecified (principal); R42 Dizziness and giddiness
CPT/HCPCS: 99284-25; J0131

== ENCOUNTER 2023-10-07 16:45 | Emergency (ER) | payer OTHER ==
[2023-10-07 17:02] VITALS: BP 115/67; PULSE 102; RESP 19; TEMP 99.3; BMI 28.3
[2023-10-07] MEDS ORDERED: ALPRAZolam 1 MG TABLET ONE (17:44)
[2023-10-07] MEDS: ALPRAZolam 0.25 MG TABLET PO ONE (17:48)
[2023-10-07] MEDS ORDERED: KETOROLAC TROMETHAMINE 30 MG/1 ML VIAL ONE (17:59)
[2023-10-07] MEDS: KETOROLAC TROMETHAMINE 30 MG/1 ML VIAL IM ONE (18:15)
== END 2023-10-07 18:16 | disposition home or self-care (01) ==
LOC: JER 16:45
PROC: 3E0133Z Introduction of Anti-inflammatory into Subcutaneous Tissue, Percutaneous Approach (ICD-10-PCS; principal; 2023-10-07)
DX: F41.9 Anxiety disorder, unspecified (principal); R51.9 Headache, unspecified; R42 Dizziness and giddiness
CPT/HCPCS: 99284-25

== ENCOUNTER 2023-11-04 15:56 | Emergency (ER) | payer OTHER ==
[2023-11-04 16:23] VITALS: BMI 28.3
[2023-11-04] MEDS ORDERED: METOCLOPRAMIDE HCL INJECTION 10 MG/2 ML VIAL ONE (18:12)
[2023-11-04 18:15] LABS: BASO % 0.7 % (0-2.0); EOS % 2.3 % (0-4.5); HEMATOCRIT 36.1 % (32.4-45.2); HEMOGLOBIN 11.7 GM/dL (10.7-15.3); LYMPH % 38.2 % (8-40); MCHC 32.3 g/dl (32.0-36.0); MEAN CELL VOLUME 71.4 fl (80-96); MEAN PLT VOLUME 8.6 fl (7.5-11.1); MONO % 8.3 % (3.8-10.2); NEUT % 50.5 % (42.8-82.8); PLATELET COUNT 193 10^3/uL (134-434); RBC 5.06 M/mm3 (3.60-5.2); RDW 20.4 % (11.6-15.6); WHITE BLOOD COUNT 8.9 K/mm3 (4.0-10.0)
[2023-11-04 18:21] LABS: INR 1.13 (0.83-1.09)
[2023-11-04 18:24] LABS: ACTIVATED PTT 31.5 SECONDS (25.2-36.5); ADD RBC MORPHOLOGY YES
[2023-11-04 18:26] LABS: POTASSIUM 3.4 mmol/L (3.5-5.1)
[2023-11-04 18:27] LABS: ALBUMIN 3.8 g/dl (3.4-5.0); CALCIUM 9.3 mg/dL (8.5-10.1)
[2023-11-04 18:28] LABS: BLOOD UREA NITROGEN 11.7 mg/dL (7-18)
[2023-11-04 18:31] LABS: CREATININE 0.7 mg/dL (0.55-1.3)
[2023-11-04 18:33] LABS: BILIRUBIN,TOTAL 0.2 mg/dL (0.2-1); TOT PROT 7.1 g/dl (6.4-8.2)
[2023-11-04] MEDS: METOCLOPRAMIDE HCL INJECTION 10 MG/2 ML VIAL IVPB ONE (18:51)
[2023-11-04] MEDS: SODIUM CHLORIDE 0.9% 500 ML INFUS.BAG IV ONE (18:51)
[2023-11-04] MEDS ORDERED: diazePAM CARPU-JECT 10 MG/2 ML DISP.SYRIN ONE (19:24)
[2023-11-04] MEDS: diazePAM CARPU-JECT 10 MG/2 ML DISP.SYRIN IVPUSH ONE (19:34)
[2023-11-04 19:44] LABS: ANISOCYTOSIS 0; MACROCYTOSIS 0
[2023-11-04 20:47] VITALS: BP 133/72; PULSE 88; RESP 19; TEMP 98.6
== END 2023-11-04 20:47 | disposition left against medical advice (07) ==
LOC: JER 15:56
PROC: 3E033GC Introduction of Other Therapeutic Substance into Peripheral Vein, Percutaneous Approach (ICD-10-PCS; principal; 2023-11-04)
PROC: 3E033GC Introduction of Other Therapeutic Substance into Peripheral Vein, Percutaneous Approach (ICD-10-PCS; 2023-11-04)
DX: R42 Dizziness and giddiness (principal); I26.09 Other pulmonary embolism with acute cor pulmonale; R51.9 Headache, unspecified; Z20.822 Contact with and (suspected) exposure to COVID-19
CPT/HCPCS: 0241U-QW; 36415; 70450-TC; 71045-TC-FY; 71275-TC; 80053; 83735; 83880; 84484; 84703; 85025; 85610; 85730; 86850; 86900; 86901; 93005; 93010; 99285-25; Q9967